=== PATIENT | female | born 1990 ===

== ENCOUNTER 2021-04-11 17:43 | Emergency (ER) | payer MEDICAID ==
[2021-04-11 18:27] LABS: Bilirubin,Urine NEG (Negative); Blood,Urine NEG (Negative); Color,Urine Yellow (Yellow); Protein,Urine <15 mg/dL mg/dL (Negative); Urobilinogen,Urine < 2.0 mg/dL (<2.0)
[2021-04-11 18:36] LABS: RBC,Urine < 1.0 /HPF (0.0-6.0); WBC,Urine < 1.0 /HPF (0.0-6.0)
[2021-04-11 18:39] VITALS: BP 138/79
--- NOTE | 2021-04-11 18:46 | Emergency Department Report ---
ED Abdominal Pain HPI - General Chief Complaint: Abdominal Pain Stated Complaint: ABD PAIN Source: patient Mode of arrival: Ambulatory Limitations: Language Barrier - History of Present Illness Initial Comments: 31-year-old female presents to the ED complaining of abdominal pain x 3-days . Patient stated that she was nauseated x1. She states she last ate something about 6 hours ago. Denies any vomiting or fever .Patient alert and oriented x4. Denies taking any prior medication. She has no known medical history. 3 Para 3 no . LMP 03/19/2021. lang interpreter used. Location: diffuse Severity scale (0 -10): 6 Quality: burning Consistency: intermittent Improves With: nothing Worsens With: nothing Associated Symptoms: nausea - Related Data LMP Date: 03/19/21 Previous Rx's Medication Instructions Recorded Last Taken Type Famotidine [Pepcid] 20 mg PO BID 15 Days #30 tablet 04/11/21 Unknown Rx Allergies Allergy/AdvReac Type Severity Reaction Status Date / Time No Known Allergies Allergy Verified 04/11/21 17:49 ED Review of Systems ROS: Stated complaint: ABD PAIN Other details as noted in HPI Constitutional: denies: chills, fever Eyes: denies: eye pain, eye discharge, vision change ENT: denies: ear pain, throat pain Respiratory: denies: cough, shortness of breath, wheezing Cardiovascular: denies: chest pain, palpitations Endocrine: no symptoms reported Gastrointestinal: abdominal pain, nausea. denies: diarrhea Genitourinary: denies: urgency, dysuria, discharge Musculoskeletal: denies: back pain, joint swelling, arthralgia Skin: denies: rash, lesions Neurological: denies: headache, weakness, paresthesias Psychiatric: denies: anxiety, depression Hematological/Lymphatic: denies: easy bleeding, easy bruising ED Past Medical Hx - Medications Home Medications: Home Medications Medication Instructions Recorded Confirmed Last Taken Type Famotidine [Pepcid] 20 mg PO BID 15 Days #30 tablet 04/11/21 Unknown Rx ED Physical Exam - General Limitations: Language Barrier General appearance: alert, in no apparent distress - Head Head exam: Present: atraumatic, normocephalic - Eye Eye exam: Present: normal appearance - ENT ENT exam: Present: mucous membranes moist - Neck Neck exam: Present: normal inspection - Respiratory Respiratory exam: Present: normal lung sounds bilaterally. Absent: respiratory distress - Cardiovascular Cardiovascular Exam: Present: regular rate, normal rhythm. Absent: systolic murmur, diastolic murmur, rubs, gallop - GI/Abdominal GI/Abdominal exam: Present: soft, tenderness, normal bowel sounds - Extremities Exam Extremities exam: Present: normal inspection - Back Exam Back exam: Present: normal inspection - Neurological Exam Neurological exam: Present: alert, oriented X3 - Psychiatric Psychiatric exam: Present: normal affect, normal mood - Skin Skin exam: Present: warm, dry, intact, normal color. Absent: rash ED Course Vital Signs 04/11/21 18:38 Temperature 98.5 F Pulse Rate 77 Respiratory 20 Rate Blood Pressure 138/79 [Left] O2 Sat by Pulse 100 Oximetry ED Medical Decision Making - Lab Data Result diagrams: 04/11/21 18:44 04/11/21 18:44 - Medical Decision Making 31-year-old female presents to the ED complaining of abdominal pain and epigastric pain x 3-days . patient stated that she was nauseated x1. She states she last ate something about 6 hours ago. Denies any vomiting or fever .Patient alert and oriented x4. Denies taking any prior medication. She has no known medical history. 3 Para 3 no . LMP 03/19/2021. lang interpreter used. Labs are unremarkable. UA were unremarkable. Toradol 30 mg given IM. GI cocktail given she stated pain 0 out of 10 after Discussed discharge instruction and patient verbalized understanding using the [employer] device to interpret [place]ic from [place]. Critical care attestation.: If time is entered above; I have spent that time in minutes in the direct care of this critically ill patient, excluding procedure time. ED Disposition Clinical Impression: Epigastric abdominal pain Disposition: HOME / SELF CARE / HOMELESS Is pt being admited?: No Does the pt Need Aspirin: No Condition: Stable Instructions: Abdominal Pain (ED), Heartburn, [id number] Additional Instructions: Take [id number] antacid such as Maalox , Follow-up with primary care doctor as needed Return to the ED for any worsening symptoms such as chest pain ,shortness of breath or abdominal pain Prescriptions: Famotidine [Pepcid] 20 mg PO BID 15 Days #30 tablet Print Language: [place]
[2021-04-11 19:22] LABS: BUN/Creatinine Ratio 17; Blood Urea Nitrogen 12 mg/dL (7-17); Calcium 9.7 mg/dL (8.4-10.2); Hemolysis Index 10
[2021-04-11] MEDS ORDERED: KETOROLAC 30 MG/1 ML INJ IM ONE (19:28)
[2021-04-11] MEDS ORDERED: KETOROLAC 30 MG/1 ML INJ ONE (19:29)
[2021-04-11] MEDS ORDERED: ALUM-MAG HYDROXIDE-SIMETHICONE 200-200-20MG/5ML ORAL LIQD 30 ML PO ONE (19:34)
[2021-04-11] MEDS ORDERED: LIDOCAINE VISCOUS 2% 15 ML ORAL LIQD PO ONE (19:34)
[2021-04-11] MEDS ORDERED: FAMOTIDINE 20 MG TAB PO ONE (19:39)
[2021-04-11 20:00] LABS: Basophils % (Auto) 0.2 % (0.0-1.8); Eosinophils # (Auto) 0.2 K/mm3 (0.0-0.4); Eosinophils % (Auto) 1.6 % (0.0-4.3); Hematocrit 44.5 % (30.3-42.9); Hemoglobin 14.8 gm/dl (10.1-14.3); Lymphocytes # (Auto) 1.7 K/mm3 (1.2-5.4); Mean Corpuscular HGB Conc 33 % (30-34); Mean Corpuscular Volume 93 fl (79-97); Monocytes # (Auto) 0.5 K/mm3 (0.0-0.8); Monocytes % (Auto) 4.8 % (0.0-7.3); Platelet Count 221 K/mm3 (140-440); Red Blood Count 4.77 M/mm3 (3.65-5.03)
== END 2021-04-12 04:48 | disposition home or self-care (01) ==
LOC: ED 17:43
DX: R10.13 Epigastric pain (principal); Z79.899 Other long term (current) drug therapy
CPT/HCPCS: 36415; 80048; 81001; 82150; 83690; 84703; 85025; 96372; 99283; J1885